=== PATIENT | female | born 1970 | race Two or more races ===

== ENCOUNTER 2020-03-26 07:55 | Outpatient (CLI) | payer OTHER | END 2020-03-26 08:02 | disposition home or self-care (01) | LOC: SONOGRAMA 07:55 | PROVIDERS: ATTEND Physical Medicine & Rehabilitation Hospice and Palliative Medicine | DX: G56.21 Lesion of ulnar nerve, right upper limb (principal); G56.22 Lesion of ulnar nerve, left upper limb ==

== ENCOUNTER → 2021-06-10 | Outpatient (CLI) | payer OTHER | END | disposition home or self-care (01) | LOC: MRI 11:18 | PROVIDERS: ATTEND Physical Medicine & Rehabilitation Hospice and Palliative Medicine | DX: M54.5 Low back pain (principal) | CPT/HCPCS: 73721 ==

== ENCOUNTER 2021-10-31 14:36 | Outpatient (CLI) | payer OTHER | END 2021-10-31 14:40 | disposition home or self-care (01) | LOC: RAD 14:36 | PROVIDERS: ATTEND Orthopaedic Surgery | DX: M17.0 Bilateral primary osteoarthritis of knee (principal); M25.562 Pain in left knee; M25.561 Pain in right knee | CPT/HCPCS: 73718 ==